=== PATIENT | female | born 1985 | race Caucasian/White ===

== ENCOUNTER 2018-11-09 11:45 | Emergency (ER) | payer BC ==
[2018-11-09 11:59] VITALS: TEMP 98.1; BMI 22.0
--- NOTE | 2018-11-09 12:38 | PDOC ---
History of Present Illness - General Chief Complaint: Back Pain Stated Complaint: BACK PAIN Time Seen by Provider: 11/09/18 12:36 History Source: Patient Exam Limitations: No Limitations Past History - Past Medical History Allergies/Adverse Reactions: Allergies Allergy/AdvReac Type Severity Reaction Status Date / Time No Known Allergies Allergy Verified 11/09/18 11:54 Home Medications: Ambulatory Orders Cyclobenzaprine HCl [Flexeril -] 10 mg PO HS PRN #14 tablet 11/09/18 Ibuprofen 600 mg PO TID PRN #30 tablet 11/09/18 Lidocaine 4% Topical [Xylocaine 4% Topical -] 1 applic MM BID PRN #10 btl Oxycodone HCl/Acetaminophen [Percocet 5-325 mg Tablet] 1 tab PO BID PRN #10 tablet MDD 2 tabs 11/09/18 COPD: No - Suicide/Smoking/Psychosocial Hx Smoking History: Never smoked Information on smoking cessation initiated: No Hx Alcohol Use: No Drug/Substance Use Hx: No *Physical Exam - Vital Signs Last Vital Signs Temp Pulse Resp BP Pulse Ox 98.1 F 65 20 102/60 100 11/09/18 11:54 11/09/18 11:54 11/09/18 11:54 11/09/18 11:54 11/09/18 11:54 - Physical Exam Comments: Vitals stable (BP 102/60), pt afebrile. Pt appears uncomfortable, lying on side in stretcher. Normal body habitus. Pt alert and oriented x3. co founder & ceo generally intact, muscular strength and sensation intact. No decreased sensation or strength in b/l upper and lower extremities. No midline spinal tenderness, step-offs, or crepitus. No reproducible paraspinal or midline tenderness. Pt appears to be in spasm throughout her lower back. Head normocephalic, atraumatic. Eyes PERRLA, EOMI. Oropharynx without erythema or exudates, no LAD b/l. No nasal congestion, hearing intact. Clear heart sounds, S1/S2, no JVD, b/l pedal edema, or heart murmur. Clear lung sounds, no respiratory distress, wheezes, crackles, or accessory muscle use. No abdominal or CVA tenderness to palpation, no rebound, no guarding. Abdomen soft, non-distended, and with normoactive bowel sounds. Skin without jaundice or rash. 11/09/18 14:24 Medical Decision Making - Medical Decision Making Pt was seen at bedside, also will be seen by attending Dr. Gutierrez. Pt presenting with Considering [vs vs] Ordered work-up including urine test. Provided 650 mg PO tylenol, 500 mg PO robaxin, and topical lidocaine patch for improvement of discomfort. Will continue to reassess pt and monitor for symptomatic improvement. 11/09/18 13:01 Provided 15 mg IM toradol. Ordered MRI of thoracic and lumbar spine without contrast, as pt is not ambulatory in the ED. Informed by radiology/MRI that imaging will not be done stat. Will provide pt with additional pain medications and reassess, and see if pt is able to ambulate in the ED and continues to have no FNDs. Pt agreeable to plan, as she does not wish to stay until tomorrow for imaging. Provided additional 15 mg IM toradol (30 mg total) and 4 mg IM morphine. Pt ambulatory in the ED with no FNDs. 11/09/18 20:13 *DC/Admit/Observation/Transfer Diagnosis at time of Disposition: Lower back pain Qualifiers: Chronicity: acute Back pain laterality: bilateral Sciatica presence: without sciatica Qualified Code(s): M54.5 - Low back pain - Discharge Dispostion Disposition: HOME Condition at time of disposition: Improved Decision to Admit order: No - Prescriptions Prescriptions: Cyclobenzaprine HCl [Flexeril -] 10 mg PO HS PRN #14 tablet PRN Reason: Pain Ibuprofen 600 mg PO TID PRN #30 tablet PRN Reason: Pain Lidocaine 4% Topical [Xylocaine 4% Topical -] 1 applic MM BID PRN #10 btl PRN Reason: Pain Oxycodone HCl/Acetaminophen [Percocet 5-325 mg Tablet] 1 tab PO BID PRN #10 tablet MDD 2 tabs PRN Reason: Pain Level 7 - 10 - Referrals Referrals: ON STAFF,NOT [Primary Care Provider] - Lasha Chan DO [Staff Physician] - - Patient Instructions Printed Discharge Instructions: DI for Low Back Pain Additional Instructions: You were seen in the ER today for lower back pain. You improved after medication in the ER. We have also sent medication to your pharmacy, please take these as prescribed. Please follow-up with your primary care doctor and orthopedics within 1-2 days to discuss your visit and make sure your symptoms have improved. Please return to the ER if you have any worsening pain, numbness or tingling in your extremities, development of fevers or chills, loss of consciousness, inability to tolerate food or fluids, or any other concerns. - Post Discharge Activity
[2018-11-09] MEDS ORDERED: ACETAMINOPHEN 325 MG TABLET (FP) PO ONE (12:50)
[2018-11-09] MEDS ORDERED: LIDOCAINE 5% TOPICAL PATCH TP ONE (12:58)
[2018-11-09] MEDS ORDERED: METHOCARBAMOL 500 MG TABLET PO ONE (12:58)
[2018-11-09] MEDS ORDERED: LIDOCAINE 5% TOPICAL PATCH ONE (13:15)
[2018-11-09] MEDS ORDERED: ACETAMINOPHEN 325 MG TABLET (FP) ONE (13:15)
[2018-11-09] MEDS ORDERED: METHOCARBAMOL 500 MG TABLET ONE (13:53)
[2018-11-09] MEDS ORDERED: KETOROLAC TROMETHAMINE 15 MG/ML VIAL IM ONE ×2 (14:52→17:57)
[2018-11-09] MEDS ORDERED: KETOROLAC TROMETHAMINE 15 MG/ML VIAL ONE ×2 (15:02→19:00)
--- NOTE | 2018-11-09 16:29 | PDOC ---
Documentation entered by Melissa Reyes SCRIBE, acting as scribe for Shama Gutierrez MD. Shama Gutierrez MD: This documentation has been prepared by the Eric peralta Sammi, SCRIBE, under my direction and personally reviewed by me in its entirety. I confirm that the documentation accurately reflects all work, treatment, procedures, and medical decision making performed by me. Attending Attestation - Resident Resident Name: ZhangJosi - ED Attending Attestation I have performed the following: I have examined & evaluated the patient, The case was reviewed & discussed with the resident, I agree w/resident's findings & plan, Exceptions are as noted - HPI HPI: 11/09/18 13:14 The patient is a 33 year old female, with no significant PMH, who presents to the emergency department for evaluation of diffuse low back pain. The patient states she was moving out of a storage unit when she felt a sudden onset pulling sensation in her lower back. She notes she was able to get up on her own initially but now is having difficulty sitting up and standing. Patient denies numbness, tingling, and weakness. Denies other trauma. The patient denies chest pain, shortness of breath, headache and dizziness. Denies fever, chills, nausea, vomit, diarrhea and constipation. Denies dysuria, frequency, urgency and hematuria. Allergies: NKA - Physicial Exam PE: 11/09/18 16:06 GENERAL: Awake, alert, and fully oriented, appears uncomfortable EYES: PERRLA, EOMI, sclera anicteric, conjunctiva clear ENT: Nares patent, oropharynx clear without exudates. Moist mucosa NECK: Normal ROM, supple, no lymphadenopathy, JVD, or masses LUNGS: Breath sounds equal, clear to auscultation bilaterally. No wheezes, and no crackles HEART: Regular rate and rhythm, normal S1 and S2, no murmurs, rubs or gallops ABDOMEN: Soft, nontender, normoactive bowel sounds. No guarding, no rebound. No masses EXTREMITIES: Normal range of motion, no edema. No cords, erythema, or tenderness BACK: no midline cervical, thoracic, or lumbar ttp. +L lumbosacral paraspinal ttp NEUROLOGICAL: Normal speech, cranial nerves intact, 5/5 strength in all 4 extremities, normal sensation to light touch in all 4 extremities, normal cerebellar exam, normal reflexes and tone, unable to gait SKIN: Warm, Dry, normal turgor, no rashes or lesions noted. - Medical Decision Making 11/09/18 16:08 33yo F presents to the ED with sudden onset lumbosacral pain after lifting a heavy object. Initially, pt able to ambulate, was able to walk to stretcher. No midline, no focal ttp. Despite robaxin, tylenol, lidocaine patch, and toradol, pt states pain is persistent and now she is having difficulty ambulating. Given acute trauma this AM, concern for herniated disc, possible cord compression. At this time, will proceed with STAT MRI of the thoracic and lumbosacral spine.
[2018-11-09] MEDS ORDERED: morphine CARPU-JECT 4 MG/1 ML DISP.SYRIN IM ONE (17:57)
[2018-11-09] MEDS ORDERED: morphine SULFATE 4 MG/ML VIAL ONE (18:59)
[2018-11-09 19:51] VITALS: BP 104/64; PULSE 85
[2018-11-09] MEDS ORDERED: LIDOCAINE PATCH REMOVAL MC SCH (22:00)
== END 2018-11-09 19:51 | disposition home or self-care (01) ==
LOC: JER 11:45
PROC: 3E033NZ Introduction of Analgesics, Hypnotics, Sedatives into Peripheral Vein, Percutaneous Approach (ICD-10-PCS; principal; 2018-11-09)
PROC: 3E0333Z Introduction of Anti-inflammatory into Peripheral Vein, Percutaneous Approach (ICD-10-PCS; 2018-11-09)
PROC: 3E0333Z Introduction of Anti-inflammatory into Peripheral Vein, Percutaneous Approach (ICD-10-PCS; 2018-11-09)
DX: M54.5 Low back pain (principal); X50.0XXA Overexertion from strenuous movement or load, initial encounter; Y93.89 Activity, other specified; Y92.89 Other specified places as the place of occurrence of the external cause; Y99.8 Other external cause status
CPT/HCPCS: 84703; 99282-25